=== PATIENT | male | born 1970 | race Caucasian/White ===

== ENCOUNTER 2022-12-03 07:38 | Day surgery (SDC) | payer OTHER, SELFPAY ==
[2022-12-03 07:37] VITALS: BMI 37.5
[2022-12-03 07:46] VITALS: BP 125/72; PULSE 72; RESP 20; TEMP 36.6; O2SAT 96
[2022-12-03] MEDS: Lactated Ringers 1,000 ML 50 ML IVCONT (08:10)
--- NOTE | 2022-12-03 08:18 | P.CONAN_ITS ---
HPI - Anesthesia Eval Consult details Narrative: 52 M for colonoscopy [facility] Past Medical History Functional capacity: independent ambulation Family History Family history of problems with anesthesia: No Surgical History Surgical History (Updated 12/03/22 @ 07:57 by Thea Toscano RN) H/O hand surgery History of left hip replacement [place] teeth extracted History of Problems with Anesthesia: No Social History Social History Patient Tobacco Use Status: Never used Tobacco Are you DNR?: No Advance Directives: No Advance Directives Information Provided: Yes Recently lost weight without trying: No Nutrition Risks: No Nutritional Risk Meds Allergies Allergy/AdvReac Type Severity Reaction Status Date / Time No Known Allergies Allergy Verified 09/30/22 10:17 Active Medications: Current Medications Lactated Ringer's (Lr) 1,000 mls @ 50 mls/hr IVCONT .Q20H DAREN Last Admin: 12/03/22 08:10 Dose: 50 mls/hr Sodium Biphosphate/Sodium Phosphate (Sodium Phosphate,[place]aw[place]-Dibasic 133 Ml Enema) 133 ml OK ONCE PRN PRN Reason: Poor Colonoscopy Prep Results Home Medications Medication Instructions Recorded Confirmed Last Taken Type No Known Home Meds 09/30/22 12/03/22 Unknown History Exam Exam Date and Time: December 03, 2022 0818 Height,Weight and Vital Signs: Height 5 ft 10 in Weight 118.841 kg Last Vital Signs Temp 98 F 12/03/22 07:46 Pulse 72 12/03/22 07:46 Resp 20 12/03/22 07:46 BP 125/72 12/03/22 07:46 Pulse Ox 96 12/03/22 07:46 O2 Del Method Room Air 12/03/22 07:46 Airway Mallampati Class: III TM Dist: >3cm Neck ROM: Full Loose/Missing/Broken Teeth: Yes Assessment and Plan Assessment Anesthesia Assessment: Anesthesia Plan Discussed and Chart Reviewed Final Anesthetic Review Family History of Problems with Anesthesia: No History of Problems with Anesthesia: No NPO: Yes ASA Class: II Final Preanesthetic Review: Meds/Allgs Chart Reviewed, Consent Obtained/Reviewed and Anes Risks/Benef Reviewed Patient Risk: Intermediate Procedure Risk: Intermediate Anesthetic Plan Anesthetic Plan: MAC: and Agree w/ Assess. and Plan Disposition: Standard PACU
[2022-12-03 09:21] VITALS: BP 106/40; PULSE 68; RESP 20; TEMP 36.2; O2SAT 98
--- NOTE | 2022-12-03 09:26 | P.BOP_ITS ---
Brief Operative Note Date of Service: 12/03/22 Pre-op diagnosis: Screening Post-op diagnosis: other (Internal hemorrhoids) Procedure: Colonoscopy to the cecum and TI Surgeon: Aldo Howe Anesthesia: MAC Was an Watch [employer] used for this Procedure?: No Estimated blood loss (mL): 0 Pathology: none sent Condition: stable Disposition: PACU
[2022-12-03 09:36] VITALS: BP 119/65; PULSE 68; RESP 20; TEMP 36.4; O2SAT 98
--- NOTE | 2022-12-03 10:20 | OP_ITS ---
DATE OF SERVICE: 12/03/2022 SURGEON: Aldo Howe MD INDICATIONS: The patient presents for evaluation of colorectal cancer screening. Full consent has been obtained from him for this, including risks of bleeding and perforation. PREOPERATIVE DIAGNOSIS: Colorectal cancer screening. POSTOPERATIVE DIAGNOSIS: Colorectal cancer screening, small internal hemorrhoids. PROCEDURE PERFORMED: Colonoscopy to the cecum and terminal ileum. ESTIMATED BLOOD LOSS: COMPLICATIONS: ANESTHESIA: Monitored anesthesia care. ASSISTANTS: SPECIMENS: DESCRIPTION OF PROCEDURE: The patient was placed in the left lateral decubitus position. The digital rectal exam revealed no abnormalities. The Olympus video pediatric colonoscope was entered into the rectum and advanced easily to the cecum. Once in the cecum, I did identify normal-appearing cecal pouch with appendiceal orifice and normal-appearing ileocecal valve. The terminal ileum was cannulated and appeared normal. The scope was withdrawn back in the colon. The entire cecum and ileocecal valve appeared normal. The scope was slowly withdrawn assessing all mucosal surfaces carefully. Preparation was excellent. I did not visualize any sign of polyps, colitis, nor angiodysplasia. In the rectum, the scope was retroflexed visualizing small internal hemorrhoids, but no other pathology. The rectal mucosa appeared normal. Scope was straightened out and withdrawn from patient. He tolerated procedure well, was returned to the recovery area in stable condition. IMPRESSION: Small internal hemorrhoids, otherwise normal colonoscopy. PLAN: I would recommend a repeat colonoscopy in 10 years for further screening. He was again reminded to do his laboratories for workup of his elevated LFTs and to see me in the Fall for a followup visit in that regard. This has been discussed with his as well. Aldo Howe MD RMW/MODL / [id number] MTDD
== END 2022-12-03 10:05 | disposition home or self-care (01) ==
PROVIDERS: PCP Internal Medicine; Visit Provider Internal Medicine
PROC: 0DJD8ZZ Inspection of Lower Intestinal Tract, Via Natural or Artificial Opening Endoscopic (ICD-10-PCS; CPT 45378; principal; 2022-12-03 08:30)
DX: Z12.11 Encounter for screening for malignant neoplasm of colon (principal); K64.8 Other hemorrhoids; K76.0 Fatty (change of) liver, not elsewhere classified; R79.89 Other specified abnormal findings of blood chemistry; Z96.642 Presence of left artificial hip joint
CPT/HCPCS: 45378